=== PATIENT | male | born 1985 | race Caucasian/White ===

== ENCOUNTER 2017-03-05 08:01 | Day surgery (SDC) | payer OTHER ==
[2017-02-25 16:34] VITALS: BMI 30.7
[~2017-03-05 08:01] MED LIST: LACTATED RINGERS 1,000 ML IV SCH
[2017-03-05 08:35] VITALS: RESP 16; TEMP 98.3
[2017-03-05] MEDS ORDERED: PROPOFOL 10 MG/ML 20 ML VIAL IV ONE (08:57)
--- NOTE | 2017-03-05 09:06 | P.GSHP ---
History of Present Illness H&P Date: 03/05/17 Chief Complaint: GI bleed This a 32-year-old male referred from Dr. Barrett Cruz. Patient's had issues rectal bleeding. He presents today for colonoscopy. Past Medical History Past Medical History: GI Bleed Additional Past Medical History / Comment(s): rectal bleeding History of Any Multi-Drug Resistant Organisms: None Reported Past Surgical History: No Surgical Hx Reported Additional Past Anesthesia/Blood Transfusion Reaction / Comment(s): no anesthesia Smoking Status: Current every day smoker - Past Family History Mother Family Medical History: No Reported History Medications and Allergies Home Medications Medication Instructions Recorded Confirmed Type No Known Home Medications [No 02/25/17 02/25/17 History Known Home Medications] Allergies Allergy/AdvReac Type Severity Reaction Status Date / Time No Known Allergies Allergy Verified 03/05/17 08:35 Surgical - Exam Vital Signs Temp Pulse Resp BP Pulse Ox 98.3 F 58 L 16 118/65 96 03/05/17 08:31 03/05/17 08:31 03/05/17 08:31 03/05/17 08:31 03/05/17 08:31 - General well developed, no distress - Eyes PERRL - ENT normal pinna - Neck no masses - Respiratory normal expansion - Cardiovascular Rhythm: regular - Abdomen Abdomen: soft, non tender Assessment and Plan Assessment: GI bleed. We'll perform colonoscopy.
[2017-03-05 09:39] VITALS: BP 122/84; PULSE 77
[2017-03-05] MEDS ORDERED: oxyCODONE-APAP 5-325MG 1 EACH TAB PO ONE (10:02)
--- NOTE | 2017-03-05 10:45 | P.OP ---
Date of Procedure: 03/05/17 Preoperative Diagnosis: GI bleed Postoperative Diagnosis: Internal hemorrhoids Procedure(s) Performed: Colonoscopy Anesthesia: MAC Surgeon: Saeid Gallego Pathology: none sent Condition: stable Disposition: PACU Description of Procedure: The patient's placed on the endoscopy table in the lateral position. He received IV sedation. Digital rectal exam is performed which revealed internal and external hemorrhoids. The flexible colonoscope was then placed patient anus passed throughout the entire colon. The ileocecal valve was visualized. Cecum, ascending and transverse colon appeared normal. Scope was brought back in the descending and; was normal. Scope was brought back the rectum was normal. He was no blood seen in the entire colon. There were no polyps or tumors seen there is no diverticula seen. Scope was unretroflexed there is noted to have some small internal hemorrhoids. There is no active bleeding seen. Scope was withdrawn for patient.
== END 2017-03-05 10:03 | disposition home or self-care (01) ==
LOC: ORWHC2ENDO 08:01
PROVIDERS: ATTEND Surgery
DX: K64.8 Other hemorrhoids (principal); K64.4 Residual hemorrhoidal skin tags; F17.200 Nicotine dependence, unspecified, uncomplicated
CPT/HCPCS: 45378; J2704

== ENCOUNTER 2017-03-08 09:02 | Day surgery (SDC) | payer BC, OTHER ==
[2017-02-25 16:34] VITALS: BMI 30.7
[~2017-03-08 09:02] MED LIST changes: +DEXAMETHASONE SOD PHOSPHATE 10 MG/ML 1 ML VIAL IV ONE; +HEPARIN SODIUM,PORCINE 5,000 UNIT/ML 1 ML VIAL SQ ONE; +HYDROmorphone 0.5 MG/0.5 ML SYRINGE IVP PRN; +MIDAZOLAM 2 MG/2 ML VIAL IV PRN; +ONDANSETRON 4 MG/2 ML VIAL IVP ONE; +Pre Op ABX Message 1 EACH MISC MISCELLANE ONE
[2017-03-08] MEDS ORDERED: LIDOCAINE 1% 20 ML VIAL (10MG/ML) FOR IV START INTRADERMA ONE (10:18)
--- NOTE | 2017-03-08 10:51 | P.GSHP ---
History of Present Illness H&P Date: 03/08/17 Chief Complaint: Right arm lipoma, back lipomas [id number] male referred from Dr. Barrett Cloud. Patient presents today for excision of right arm lipoma and back lipomas 2. Past Medical History Past Medical History: GI Bleed Additional Past Medical History / Comment(s): rectal bleeding History of Any Multi-Drug Resistant Organisms: None Reported Past Surgical History: No Surgical Hx Reported Additional Past Anesthesia/Blood Transfusion Reaction / Comment(s): no anesthesia Smoking Status: Current every day smoker - Past Family History Mother Family Medical History: No Reported History Medications and Allergies Home Medications Medication Instructions Recorded Confirmed Type No Known Home Medications [No 02/25/17 03/08/17 History Known Home Medications] Allergies Allergy/AdvReac Type Severity Reaction Status Date / Time No Known Allergies Allergy Verified 03/08/17 10:06 Surgical - Exam Vital Signs Temp Pulse Resp BP Pulse Ox 98.2 F 56 L 98 H 113/68 98 03/08/17 10:02 03/08/17 10:02 03/08/17 10:02 03/08/17 10:02 03/08/17 10:02 - General well developed, no distress - Eyes PERRL - ENT normal pinna - Neck no masses - Respiratory normal expansion - Cardiovascular Rhythm: regular - Abdomen Abdomen: soft, non tender - Integumentary 2 cm lipoma of the right medial forearm, 2 cm lipoma of the left lower back, 2 cm lipoma of the upper mid back. Assessment and Plan Assessment: Right arm and back lipomas. We'll perform excision.
[2017-03-08] MEDS ORDERED: BUPIVACAINE-EPI 0.5%-1:200,000 10 ML VIAL SQ ONE (11:22)
[2017-03-08] MEDS ORDERED: fentaNYL (PF) 50 MCG/ML 2 ML AMP ONE (11:23)
[2017-03-08] MEDS ORDERED: LIDOCAINE 1% INJ 10MG/ML (20 ML MDV) ONE (11:23)
[2017-03-08] MEDS ORDERED: MIDAZOLAM 2 MG/2 ML VIAL ONE (11:23)
[2017-03-08] MEDS ORDERED: SUCCINYLCHOLINE CHLORIDE 100 MG/5 ML SYR IV ONE (11:23)
[2017-03-08] MEDS ORDERED: PROPOFOL 10 MG/ML 20 ML VIAL IV ONE (11:23)
[2017-03-08] MEDS ORDERED: SODIUM CHLORIDE 0.9% 50 ML with ceFAZolin 2,000 MG IV ONE ×2 (11:44)
--- NOTE | 2017-03-08 12:32 | P.OP ---
Date of Procedure: 03/08/17 Preoperative Diagnosis: Right arm lipoma, left lower back lipoma, left upper back lipoma Postoperative Diagnosis: Same Procedure(s) Performed: Excision of right arm back lipomas. Anesthesia: EDWIN Surgeon: Saeid Gallego Estimated Blood Loss (ml): 10 Pathology: other (Lipoma) Condition: stable Disposition: PACU Description of Procedure: Placed on the operating table in the lateral position. He received general anesthesia. His right arm and back were prepped in usual sterile fashion. The patient had a left lower back lipoma. Skin was anesthetized with 1% local Xylocaine and then a skin incision was made with 15 blade. Using blunt and sharp dissection and electrocautery the lipoma was excised. Lipoma measured approximately 2 cm in size. Next the upper back lipoma was excised in identical fashion. She had a 3 cm lipoma located over his upper mid spine. The areas this is 1% local Xylocaine and then the skin was incised with a 15 blade and then the lipoma was dissected free using left cautery. Lipoma measured 3 cm in size Next the right arm lipoma was injected with 1% local Xylocaine. The skin was incised and then using blunt and sharp dissection with cautery the lipoma was excised. Lipoma measured 3 cm in size. Next the skin was closed interrupted 3-0 Monocryl suture. Dermabond was applied. Patient was sent to recovery in stable condition.
[2017-03-08 12:37] VITALS: RESP 16; TEMP 96.9
[2017-03-08 13:39] VITALS: BP 112/64; PULSE 64
== END 2017-03-08 13:56 | disposition home or self-care (01) ==
LOC: OR 09:02
PROVIDERS: ATTEND Surgery
DX: D17.1 Benign lipomatous neoplasm of skin and subcutaneous tissue of trunk (principal); D17.21 Benign lipomatous neoplasm of skin and subcutaneous tissue of right arm; F17.210 Nicotine dependence, cigarettes, uncomplicated
CPT/HCPCS: 88304; 11403 ×2; 11402; J2250; J1644; J1100; J2405; J2001; J3010; J0690; J0330; J2704

== ENCOUNTER 2018-10-25 20:45 | Emergency (ER) | payer OTHER ==
[2018-10-25 21:12] VITALS: BP 129/81; PULSE 89; RESP 20; TEMP 98.6
[2018-10-25 22:22] LABS: Appearance,Urine Clear (Clear); Bilirubin,Urine Negative (Negative); Blood,Urine Negative (Negative); Color,Urine Light Yellow; Glucose,Urine (UA) Negative (Negative); Ketones,Urine Negative (Negative); Leukocyte Esterase,Urine Negative (Negative); Nitrite,Urine Negative (Negative); PH, Urine 5.5 (5.0-8.0); Protein,Urine Negative (Negative); Specific Gravity,Urine 1.007 (1.001-1.035); Urobilinogen,Urine <2.0 mg/dL (<2.0)
--- NOTE | 2018-10-25 22:27 | ED ---
Male Urogenital HPI - General Chief complaint: Urogenital Stated complaint: Urogenital Time Seen by Provider: 10/25/18 21:35 Source: patient, RN notes reviewed Mode of arrival: ambulatory Limitations: no limitations - History of Present Illness Initial comments: 33-year-old male presents emergency from chief complaint of scrotal pain. Patient states it was sore the day or so ago after disc 18. Patient states that he's had intense pain today that comes and goes. Patient states on the left side. Denies any swelling no dysuria no abdominal pain no flank pain. - Related Data Home Medications Medication Instructions Recorded Confirmed Loratadine [Claritin] 10 mg PO DAILY 10/25/18 10/25/18 Montelukast [Singulair] 10 mg PO DAILY 10/25/18 10/25/18 Previous Rx's Medication Instructions Recorded Ibuprofen [Motrin] 600 mg PO Q8HR PRN #30 tab 10/25/18 Allergies Allergy/AdvReac Type Severity Reaction Status Date / Time No Known Allergies Allergy Verified 10/25/18 21:56 Review of Systems ROS Statement: Those systems with pertinent positive or pertinent negative responses have been documented in the HPI. ROS Other: All systems not noted in ROS Statement are negative. Past Medical History Past Medical History: GI Bleed Additional Past Medical History / Comment(s): rectal bleeding History of Any Multi-Drug Resistant Organisms: None Reported Past Surgical History: No Surgical Hx Reported Additional Past Anesthesia/Blood Transfusion Reaction / Comment(s): no anesthesia Past Psychological History: Panic Disorder Smoking Status: Current every day smoker Past Alcohol Use History: Occasional Past Drug Use History: None Reported - Past Family History Mother Family Medical History: No Reported History General Exam Limitations: no limitations General appearance: alert, in no apparent distress Head exam: Present: atraumatic, normocephalic, normal inspection Neck exam: Present: normal inspection. Absent: tenderness, meningismus, lymphadenopathy Respiratory exam: Present: normal lung sounds bilaterally. Absent: respiratory distress, wheezes, rales, rhonchi, stridor Cardiovascular Exam: Present: regular rate, normal rhythm, normal heart sounds. Absent: systolic murmur, diastolic murmur, rubs, gallop, clicks GI/Abdominal exam: Present: soft, normal bowel sounds. Absent: distended, tenderness, guarding, rebound, rigid exam: Present: normal inspection, testicular tenderness (Left-sided), circumcision. Absent: urethral discharge, scrotal swelling, vertical testicular lie Back exam: Absent: CVA tenderness (R), CVA tenderness (L) Course Vital Signs 10/25/18 21:09 Temperature 98.6 F Pulse Rate 89 Respiratory 20 Rate Blood Pressure 129/81 O2 Sat by Pulse 98 Oximetry Medical Decision Making - Medical Decision Making 33-year-old male present emergency Department chief complaint of scrotal pain. Ultrasound was obtained which shows evidence of hydrocele. Patient symptom-free other than mild discomfort. Patient will be discharged with anti- inflammatories, rest and elevation and supportive underwear. Patient will follow-up urology as needed. - Lab Data Lab Results 10/25/18 Range/Units 21:37 Urine Color Light Yellow Urine Appearance Clear (Clear) Urine pH 5.5 (5.0-8.0) Ur Specific [place] 1.007 (1.001-1.035) Urine Protein Negative (Negative) Urine Glucose (UA) Negative (Negative) Urine Ketones Negative (Negative) Urine Blood Negative (Negative) Urine Nitrite Negative (Negative) Urine Bilirubin Negative (Negative) Urine Urobilinogen <2.0 (<2.0) mg/dL Ur Leukocyte Esterase Negative (Negative) Disposition Clinical Impression: Scrotal pain, Hydrocele Disposition: HOME SELF-CARE Condition: Stable Instructions (If sedation given, give patient instructions): Testicle Pain (ED), Hydrocele (ED) Additional Instructions: Please return to the Emergency Department if symptoms worsen or any other concerns. Prescriptions: Ibuprofen [Motrin] 600 mg PO Q8HR PRN #30 tab PRN Reason: Pain Is patient prescribed a controlled substance at d/c from ED?: No Referrals: Barrett Cruz MD [Primary Care Provider] - 1-2 days Melvin Jarrell MD [STAFF PHYSICIAN] - 1-2 days Time of Disposition: 23:22
--- NOTE | 2018-10-25 23:01 | US ---
EXAM: US Scrotum CLINICAL HISTORY: ITS.REASON US Reason: Pain TECHNIQUE: Real-time ultrasound of the scrotum with color Doppler and image documentation. COMPARISON: No relevant prior studies available. FINDINGS: Right testicle: Small hyperechoic focus within the right testis may reflect a dystrophic calcification. No mass. No torsion. Left testicle: Unremarkable. No mass. No torsion. Epididymides: 3 mm bilateral epididymal cysts or spermatoceles. Scrotum: Small left and trace right hydroceles. IMPRESSION: No testicular mass or torsion. Small left and trace right hydroceles. 2 mm bilateral epididymal cysts or spermatoceles.
[2018-10-25] MEDS ORDERED: ACET/COD 300 MG/30 MG STARTER PACK 6 TAB BTL PO STA (23:20)
== END 2018-10-25 23:27 | disposition home or self-care (01) ==
LOC: EC 20:45
DX: N43.3 Hydrocele, unspecified (principal); N50.82 Scrotal pain; F17.200 Nicotine dependence, unspecified, uncomplicated
CPT/HCPCS: 76870; 81003; 93975; 99284

== ENCOUNTER → 2018-11-17 | Outpatient (CLI) | payer OTHER | END | disposition home or self-care (01) | LOC: LABWHC1 09:27 | PROVIDERS: ATTEND Urology | DX: D40.12 Neoplasm of uncertain behavior of left testis (principal) | CPT/HCPCS: 36415; 82105; 83615 ==